=== PATIENT | male | born 1950 | race Caucasian/White ===

== ENCOUNTER 2021-01-11 06:07 | Day surgery (SDC) | payer OTHER ==
[~2021-01-11 06:07] MED LIST: Sodium Chloride 0.9% 1,000 ML IV SCH
[2021-01-11] MEDS ORDERED: Dextrose 5%-Lactated Ringers 1,000 ML IV SCH (06:45)
[2021-01-11] MEDS ORDERED: fentaNYL 100 MCG/2 ML SDV ONE (07:02)
[2021-01-11] MEDS ORDERED: Propofol 200 MG/20 ML SDV ONE ×2 (07:02→08:08)
[2021-01-11] MEDS ORDERED: Midazolam 1 MG/ML 2 ML SDV ONE (07:02)
--- NOTE | 2021-01-15 14:09 | OR ---
DATE OF PROCEDURE: 01/11/2021 SURGEON: Jonathan Fernández MD PREOPERATIVE DIAGNOSIS: History of colon polyps. POSTOPERATIVE DIAGNOSES: 1. Pandiverticulosis. 2. No recurrent colon polyps. OPERATIVE PROCEDURE: Flexible colonoscopy. ANESTHESIA: IV sedation. INDICATIONS FOR PROCEDURE: The patient presents for followup colonoscopy. He does have history of previous adenomatous polyps. The plan is to proceed with a colonoscopy with biopsies and/or polypectomy as indicated. Potential risks including bleeding and perforation were discussed, and the patient wishes to proceed. DETAILS OF PROCEDURE: The patient was taken to the operating room and placed in a left lateral decubitus position. IV sedation was administered, after which the initial digital rectal exam was performed, it was unremarkable. Colonoscope was then passed into the rectum with retroflexion revealing uncomplicated hemorrhoidal columns. Scope was eventually passed to the level of the cecum. There was quite a bit in the way of diverticulosis, but this was otherwise uncomplicated. This extended from the lower sigmoid colon up to include the cecum and ascending colon pandiverticulosis. Apart from that, there were no areas of colitis and no polyps or other signs of neoplasia. The prep was fairly good with moderate amount of liquid stool obscuring perhaps 10% of the mucosal surfaces. Scope was then withdrawn. The above findings were reconfirmed. The procedure was then concluded. The patient was taken to the recovery room in satisfactory condition. There were no other complications. Jonathan Fernández MD /[id number]
== END 2021-01-11 09:30 | disposition home or self-care (01) ==
LOC: JP.SDS 06:07
PROVIDERS: ATTEND Surgery
DX: Z12.11 Encounter for screening for malignant neoplasm of colon (principal); K57.30 Diverticulosis of large intestine without perforation or abscess without bleeding; K64.9 Unspecified hemorrhoids; Z86.010 Personal history of colon polyps
CPT/HCPCS: 45378; J2250; J2704; J3010; J7121